=== PATIENT | female | born 2000 | race Two or more races ===

== ENCOUNTER 2019-12-10 09:50 | Emergency (ER) | payer OTHER ==
[~2019-12-10] VITALS: Ht 154.9 cm; Wt 74.4 kg
[2019-12-10 09:58] VITALS: BP 132/95
[2019-12-10] MEDS ORDERED: KETOROLAC TROMETH 60MG/2ML VIAL IM ONE (10:30)
== END 2019-12-10 11:01 | disposition home or self-care (01) ==
LOC: ER 09:50
DX: S39.012A Strain of muscle, fascia and tendon of lower back, initial encounter (principal); W18.39XA Other fall on same level, initial encounter; Y93.89 Activity, other specified; Y92.89 Other specified places as the place of occurrence of the external cause; Y99.8 Other external cause status
CPT/HCPCS: 72100; 96372; 99283; J1885

== ENCOUNTER 2021-04-18 08:23 | Emergency (ER) | payer MEDICAID, OTHER ==
[~2021-04-18] VITALS: Ht 154.9 cm; Wt 86.2 kg
[2021-04-18 09:01] VITALS: BP 129/84
[2021-04-18] MEDS ORDERED: ACETAMINOPHEN/CODEINE#3 (300/30mg) TAB PO ONE (09:45)
[2021-04-18] MEDS ORDERED: ONDANSETRON ODT 4 MG TAB PO ONE (09:45)
== END 2021-04-18 10:13 | disposition home or self-care (01) ==
LOC: ER 08:23
DX: S82.61XA Displaced fracture of lateral malleolus of right fibula, initial encounter for closed fracture (principal); X50.1XXA Overexertion from prolonged static or awkward postures, initial encounter; Y93.89 Activity, other specified; Y92.89 Other specified places as the place of occurrence of the external cause; Y99.8 Other external cause status
CPT/HCPCS: 73610; 99283; Q0162